=== PATIENT | female | born 1955 | race Caucasian/White ===

== ENCOUNTER → 2017-05-03 | Outpatient (CLI) | payer OTHER ==
[~2017-05-03] MED LIST: FLEXERIL PO; HYDROCODONE-APA1 T30; MOBIC PO; NEURONTIN PO; NORVASC PO; TRAZODONE; VASOTEC; WELLBUTRIN; [UNRECOGNIZED DRUG - REMARK]
--- NOTE | ~2017-05-03 | MY11 ---
[facility] A Service of [facility] RADIOLOGY TEXT RESULTS PATIENT: BLAIR AMATO LOCATION: [facility] : 59 UNIT #: [id number] AGE: [address]: Abigail Naik MD SEX: F ORDER DR: [id number] [address] [address] [id number] O MR#: [id number] Acc #: [id number] NAME: BLAIR AMATO : 1955 SEX: F STUDY DATE/TIME: 05/03/2017 8:57 UNIT: [facility] ROOM: STUDY DESCRIPTION: MY Mammogram Screening Dig Jose F Attending Physician: Abigail Naik M.D. Referring Physician: Abigail Naik M.D. Ordering Physician: Abigail Naik M.D. Primary Care Physician: Abigail Naik M.D. MEDICAL IMAGING REPORT This report is preliminary unless electronic signature is present. EXAM Digital screening mammogram 05/03/2017 HISTORY 61-year-old woman no risk elevation. Annual screen. COMPARISON Mammograms date to 01/10/2007 with most recent 04/10/2016. FINDINGS Digital imaging of each breast was completed utilizing screening protocol. Review includes FDA-approved CAD device. Breast parenchyma is heterogeneously dense. Subareolar duct prominence is again noted in the left breast with a stable appearance. I see no interval occurring mass. There are no suspicious microcalcifications and no focal architectural distortion. IMPRESSION Stable benign mammogram. Annual screening recommended. Patients over the age of 40 are entered into a reminder system with target due date for the next mammogram. A result letter will also be sent to the patient. BIRADS: 2 Benign finding Dictated by... Adam Kenny M.D. THIS IS AN ELECTRONICALLY VERIFIED REPORT Adam Kenny M.D. at 05/06/2017 8:10 AM [facility] A Service of [facility] RADIOLOGY TEXT RESULTS PATIENT: BLAIR AMATO LOCATION: [facility] : 59 UNIT #: [id number] AGE: [address]: Abigail Naik MD SEX: F ORDER DR: ROYAL/kendra TD: 05/03/2017 10:15 JOB #: [id number] MEDICAL IMAGING REPORT Page 1 of 1
== END | disposition home or self-care (01) ==
LOC: SMAM 08:15
DX: Z12.31 Encounter for screening mammogram for malignant neoplasm of breast (principal)
CPT/HCPCS: G0202